=== PATIENT | female | born 1975 ===

== ENCOUNTER 2017-02-21 05:37 | Day surgery (SDC) | payer OTHER ==
[2017-02-14 09:07] LABS: APPEARANCE,URINE CLEAR; BILIRUBIN,URINE NEGATIVE (NEGATIVE); GLUCOSE, URINE NEGATIVE (NEGATIVE); KETONES,URINE NEGATIVE (NEGATIVE); LEUKOCYTE ESTERASE,URINE NEGATIVE (NEGATIVE); NITRITE,URINE NEGATIVE (NEGATIVE); PROTEIN,URINE NEGATIVE (NEGATIVE); URINE SPECIFIC GRAVITY 1.003; UROBILINOGEN,URINE NEGATIVE mg/dL (<2.0)
[2017-02-14 09:13] LABS: HEMATOCRIT 43.2 % (36.0-47.0); HEMOGLOBIN 14.7 g/dL (12.0-15.5); HGB HCT DIFFERENCE 0.9; MEAN CORPUSCULAR HEMOGLOBIN 30.3 pg (27.0-33.4); MEAN CORPUSCULAR HGB CONC 34.1 g/dL (32.0-36.0); MEAN CORPUSCULAR VOLUME 89 fl (80-97); RED BLOOD COUNT 4.86 10^6/uL (3.72-5.28); RED CELL DISTRIBUTION WIDTH 12.5 % (11.5-14.0); WHITE BLOOD COUNT 6.9 10^3/uL (4.0-10.5)
[2017-02-14 09:44] LABS: ALANINE AMINOTRANSFERASE 42 U/L (9-52); ALBUMIN 5.4 g/dL (3.5-5.0); ALKALINE PHOSPHATASE 81 U/L (38-126); ANION GAP 16 (5-19); ASPARTATE AMINO TRANSFERASE 36 U/L (14-36); BILIRUBIN,DIRECT 0.5 mg/dL (0.0-0.4); BILIRUBIN,TOTAL 0.6 mg/dL (0.2-1.3); BLOOD UREA NITROGEN 13 mg/dL (7-20); CALCIUM 10.2 mg/dL (8.4-10.2); CARBON DIOXIDE 25 mmol/L (22-30); CHLORIDE 105 mmol/L (98-107); CREATININE RESULT 0.83 mg/dL (0.52-1.25); GLUCOSE 90 mg/dL (75-110); POTASSIUM 4.2 mmol/L (3.6-5.0); SODIUM 146.2 mmol/L (137-145); TOTAL PROTEIN 9.4 g/dL (6.3-8.2)
[~2017-02-21 05:37] MED LIST: CEFAZOLIN 2 GM/D5W RTU 2 GM/50 ML RTUPB IV PRN; GABAPENTIN 400 MG CAPSULE PO PRN; LACTATED RINGERS 1000 ML IV PRN; LIDOCAINE 0.5% INJ-PF (5 MG/ML) 50 ML SDV SUBCUT PRN; RINGERS SOLUTION,LACTATED 1,000 ML IV PRN
[2017-02-21] MEDS ORDERED: FENTANYL CITRATE INJ/PF 100 MCG/2 ML AMPUL ONE ×2 (06:43)
[2017-02-21] MEDS ORDERED: ACETAMINOPHEN 100 ML IV ONE (06:43)
[2017-02-21] MEDS ORDERED: PROPOFOL INJ 200 MG/20 ML VIAL IV ONE (06:43)
[2017-02-21] MEDS ORDERED: MIDAZOLAM 2 MG/2 ML INJ ONE (06:43)
[2017-02-21] MEDS ORDERED: HYDROMORPHONE HCL INJ/PF 2 MG/ML AMPULE ONE (06:44)
[2017-02-21] MEDS ORDERED: EPHEDRINE SULFATE INJ 50 MG/1 ML AMPULE ONE (06:45)
[2017-02-21] MEDS ORDERED: BUPIVACAINE HCL 0.25 % INJ/PF (2.5 MG/1 ML) 30 ML VIAL ONE (06:46)
[2017-02-21] MEDS ORDERED: FENTANYL CITRATE INJ/PF 100 MCG/2 ML AMPUL IV PRN ×3 (09:13)
[2017-02-21] MEDS ORDERED: MEPERIDINE HCL/PF INJ 25 MG/1 ML DISP.SYRIN IV PRN (09:13)
[2017-02-21] MEDS ORDERED: DIPHENHYDRAMINE HCL 50 MG/ML VIAL IV PRN (09:13)
[2017-02-21] MEDS ORDERED: PROMETHAZINE HCL INJ 25 MG/1 ML VIAL IV PRN ×2 (09:13)
[2017-02-21] MEDS: FENTANYL CITRATE INJ/PF 100 MCG/2 ML AMPUL ONE ×2 (09:50→10:00)
[2017-02-21] MEDS ORDERED: OXYCODONE-ACETAMINOPHEN 5-325 MG TABLET PO PRN ×2 (10:00→11:15)
[2017-02-21] MEDS ORDERED: ONDANSETRON HCL INJ/PF 4 MG/2 ML SDV IV PRN ×2 (10:01→11:16)
--- NOTE | 2017-02-21 10:28 | OPERATIVE REPORT E ---
Operative Report NAME: MARSHALL BACH : 1975 AGE: 41Y DATE OF SURGERY: 02/21/2017 ROOM: PREOPERATIVE DIAGNOSIS: Pelvic pain and history of endometriosis. POSTOPERATIVE DIAGNOSIS: Pelvic pain and history of endometriosis. PROCEDURE: Robotic-assisted total laparoscopic hysterectomy with bilateral salpingectomy. SURGEON: KELLY PEARSON M.D. BOWLING BALL MOLDER: PALMIRA COLLADO M.D. ANESTHESIA: General. COMPLICATIONS: None. ESTIMATED BLOOD LOSS: 100. URINE OUTPUT: Clear at the end of the procedure. SPECIMENS: Uterus and cervix and bilateral fallopian tubes. FINDINGS: The patient had normal-appearing pelvis with normal-appearing uterus and bilateral fallopian tubes. Both ovaries appeared normal in size with pearly white appearance. Small amount of scar tissue or corpus luteum type of cyst was visualized on the right ovary; however, this was within physiological expectations. INDICATIONS: This patient is a 41-year-old female with a history of recurrent pelvic pain despite treatments with endometrial ablation and laparoscopy for pelvic pain and previous fulguration of endometriosis. She desires definitive surgical therapy. After discussing the risks, benefits, and alternatives, including but not limited to medical management and observation, the patient consented to hysterectomy, vaginal versus laparoscopic versus robotic assisted versus open abdominal hysterectomy were all discussed with the patient and she elected for the above procedure. DESCRIPTION OF PROCEDURE: After the patient was properly consented, she was taken to the operating room where she was intubated and underwent general anesthesia. The patient was transferred to a dorsal lithotomy position using adjustable Cullen stirrups and prepped and draped in the usual sterile fashion. We began with placing a Vcare small-sized uterine manipulator in a typical fashion. Gloves were changed and we proceeded above where 0.25% plain Marcaine local anesthetic was placed supraumbilically and a 12 mm skin incision was made with a scalpel followed by a Veress needle introduced into the peritoneal cavity with correct placement ascertained by a drop in CO2 pressure to 1 mmHg. Pneumoperitoneum was established to a pressure of 15 mmHg. Then, a 12 mm bladeless trocar was advanced into the pneumoperitoneum and immediate visualization with the camera demonstrated atraumatic entry as well as the above findings. We subsequently placed 2 right and 1 left lateral ports, all 8 mm in size followed by the typical routine of local anesthetic followed by a skin incision and followed by the placement of the port under direct visualization with the camera. With all ports in place, the patient was put in steep Trendelenburg position and the robot was docked. At this time, I proceeded to the robotic console. After a thorough investigation of the pelvis, including visualization of bilateral ureters, we began with dissection on the right side of the pelvis. The vessel sealer was used to dissect the right fallopian tube from the tubo-ovarian ligament. Then, the round ligament on the right was cauterized and transected. The utero-ovarian ligament was then dissected with the vessel sealer down to the area where the round ligament had been transected. Next, the broad ligament was opened and dissected inferiorly and anteriorly to create the bladder flap, which was reduced. The dissection was then continued along the lateral portion of the uterine body to connect with the previous open broad ligament. The uterine artery was dissected out and identified and cauterized and transected at the area next to the lower uterine segment. Being very careful to hug the uterus during this portion of the surgery, the dissection was continued along the side of the cervix to the top of the coring. The same dissection was repeated on the left side and the areas of dissection were noted to be hemostatic. Next, the edge of the Vcare cervical cup was identified. At this time, the vessel sealer was switched out for monopolar scissors. The colpotomy was initiated with monopolar cautery and carried around circumferentially until the specimen was free and pulled through the vagina. At this time, the monopolar scissors were replaced with the [employer] delivery driver. The vaginal cuff was then closed in a running V-Loc suture of 3-0 Monocryl incorporating the uterosacral pedicles for support as well. The pelvis was then irrigated copiously and hemostasis was noted to be excellent. The abdomen was desufflated, the robot was undocked, and all instruments were removed. The patient was taken out of Trendelenburg. The fascia of the 12 mm port site was then closed with 0 Vicryl suture and the skin of the 8 mm and 12 mm laparoscopic ports were closed with 4-0 Monocryl in a subcuticular fashion and a Dermabond dressing was applied. Wild catheter was removed from the bladder and the vagina was swept with a sponge stick to ensure no excessive bleeding was present. At this time, the procedure was complete. Anesthesia was reversed. Sponge, lap, and needle counts were correct at the end of the procedure, and the patient was taken to the PACU in stable condition. DICTATING PHYSICIAN: KELLY PEARSON M.D. [id number] PHY#: [id number] ID: [id number] JOB#: [id number] ACCT: [id number] cc:KELLY PEARSON M.D. >
[2017-02-21] MEDS ORDERED: SUCCINYLCHOLINE CHLORIDE INJ 200 MG/10 ML VIAL ONE (13:23)
[2017-02-21] MEDS ORDERED: GLYCOPYRROLATE INJ 0.4 MG/2 ML VIAL ONE (13:23)
[2017-02-21] MEDS ORDERED: NEOSTIGMINE METHYLSULFATE 10 MG/10 ML VIAL ONE (13:23)
[2017-02-21] MEDS ORDERED: LIDOCAINE 2% INJ-PF (20 MG/ML) 2 ML AMPUL ONE (13:23)
[2017-02-21] MEDS ORDERED: KETOROLAC TROMETHAMINE 60 MG/2 ML SDV ONE (13:23)
[2017-02-21] MEDS ORDERED: DEXAMETHASONE SOD PHOSPHATE INJ 4 MG/1 ML VIAL ONE (13:23)
[2017-02-21] MEDS ORDERED: ROCURONIUM BROMIDE INJ 50 MG/5 ML VIAL IV ONE (13:23)
[2017-02-21] MEDS ORDERED: ONDANSETRON HCL INJ/PF 4 MG/2 ML SDV ONE (13:23)
[2017-02-21 16:30] VITALS: BP 120/87
== END 2017-02-21 17:02 | disposition home or self-care (01) ==
LOC: OROUT 05:37 → 2N 10:52 → OROUT 17:02
PROVIDERS: ATTEND Obstetrics & Gynecology
PROC: 8E0W4CZ Robotic Assisted Procedure of Trunk Region, Percutaneous Endoscopic Approach (ICD-10-PCS; 2017-02-21)
PROC: 0UT74ZZ Resection of Bilateral Fallopian Tubes, Percutaneous Endoscopic Approach (ICD-10-PCS; principal; 2017-02-21 07:30)
DX: R10.2 Pelvic and perineal pain (principal); N72 Inflammatory disease of cervix uteri; N80.0 Endometriosis of uterus; Z79.899 Other long term (current) drug therapy
CPT/HCPCS: 58661; S2900; 36415; 80053; 81001; 81025; 840; 85027; 86850; 86900; 86901; 88307; J0131; J0330; J0690; J1100; J1170; J1885; J2250; J2405; J2704; J3010; J3490